=== PATIENT | male | born 1970 | race Caucasian/White ===

== ENCOUNTER 2018-03-18 19:26 | Inpatient (IN) | payer OTHER ==
[~2018-03-18] VITALS: Ht 185.4 cm; Wt 58.5 kg
[~2018-03-18 19:26] MED LIST: GABAPENTIN 100100 MG PO; HUMULIN N100 UNIT/1 SQ; HUMULINR100 SUBQ
[2018-03-18 20:01] VITALS: BP 108/82
[2018-03-18 20:53] LABS: ABSOLUTE BASOPHILS 0.1 thou/uL (0.0-0.2); ABSOLUTE EOSINOPHILS 0.1 thou/uL (0.0-0.7); ABSOLUTE LYMPHOCYTES 2.6 thou/uL (0.8-5.3); ABSOLUTE MONOCYTES 0.7 thou/uL (0.0-1.2); ABSOLUTE NEUTROPHILS 7.3 thou/uL (1.6-8.1); BASOPHILS 1.3 %; EOSINOPHILS 0.8 %; HEMATOCRIT 46.4 % (42.0-52.0); HEMOGLOBIN 15.9 gm/dL (14.0-18.0); MCH 32.3 pg (26.0-34.0); MCHC 34.2 g/dL (28.0-37.0); MCV 94.5 fL (80.0-100.0); MONOCYTES 6.8 %; MPV 9.3 fl. (7.2-11.1); NUCLEATED RBCS 0 /100WBC; PLATELET COUNT* 229 thou/uL (150-400); POLYS 67.1 %; RBC 4.91 mil/uL (4.50-6.00); RDW-CV 13.5 % (10.5-14.5); WBC 10.8 thou/uL (4.0-11.0)
[2018-03-18 20:58] LABS: PROTIME 9.3 Seconds (9.20-11.50)
[2018-03-18 21:29] LABS: URINE BILIRUBIN NEGATIVE (Negative); URINE BLOOD NEGATIVE (Negative); URINE CLARITY CLEAR; URINE COLOR STRAW; URINE GLUCOSE-RANDOM 3+ (Negative); URINE KETONES NEGATIVE (Negative); URINE LEUKOCYTES-REFLEX NEGATIVE (Negative); URINE NITRITE-REFLEX NEGATIVE (Negative); URINE PROTEIN NEGATIVE (Negative); URINE SPECIFIC GRAVITY <= 1.005 (1.005-1.030); URINE UROBILINOGEN 0.2 E.U./dl (0.2-1.0)
[2018-03-18 21:53] LABS: ANION GAP 6 mmol/L (7-16); BUN 11 mg/dL (7-18); CALCIUM 8.5 mg/dL (8.5-10.1); CHLORIDE 92 mmol/L (98-107); CO2 26 mmol/L (21-32); POTASSIUM 4.4 mmol/L (3.5-5.1); SODIUM 124 mmol/L (136-145)
[2018-03-18 21:57] LABS: TROPONIN-I LEVEL <0.06 ng/mL (<0.06)
[2018-03-18 22:01] LABS: TOTAL PROTEIN 7.1 g/dL (6.4-8.2)
[2018-03-18 22:02] LABS: ALBUMIN 3.4 g/dL (3.4-5.0)
[2018-03-18 22:04] LABS: ALKALINE PHOSPHATASE 154 U/L (46-116); LIPASE 367 U/L (73-393); TOTAL BILIRUBIN 0.4 mg/dL (<0.1-1.0)
[2018-03-18 22:05] LABS: SGOT 148 U/L (15-37); SGPT 103 U/L (30-65)
[2018-03-18 22:07] LABS: GLUCOSE 642 mg/dL (70-99)
[2018-03-18 22:08] LABS: NT-PRO BRAIN NAT PEPTIDE 27 pg/mL (<300)
[2018-03-18 23:40] VITALS: BP 123/84
[2018-03-18 23:45] VITALS: BP 135/97
[2018-03-19 00:35] VITALS: BP 123/84
[2018-03-19 04:50] VITALS: BP 117/67
[2018-03-19 04:58] LABS: HEMATOCRIT 42.1 % (42.0-52.0); HEMOGLOBIN 14.4 gm/dL (14.0-18.0); MCH 31.2 pg (26.0-34.0); MCHC 34.3 g/dL (28.0-37.0); MCV 90.9 fL (80.0-100.0); MPV 9.2 fl. (7.2-11.1); RBC 4.63 mil/uL (4.50-6.00); RDW-CV 13.4 % (10.5-14.5); WBC 11.8 thou/uL (4.0-11.0)
[2018-03-19 06:01] LABS: ALBUMIN 2.8 g/dL (3.4-5.0); CALCIUM 8.1 mg/dL (8.5-10.1); CREATININE 0.6 mg/dL (0.6-1.3); POTASSIUM 3.7 mmol/L (3.5-5.1); TOTAL BILIRUBIN 0.2 mg/dL (<0.1-1.0); TOTAL PROTEIN 5.6 g/dL (6.4-8.2)
[2018-03-19] MEDS ORDERED: NEURONTIN 300300 M1 PO (07:44)
[2018-03-19 08:00] VITALS: BP 121/78
[2018-03-19] MEDS ORDERED: HUMULIN N100 UNIT/1 SUBQ (11:03)
[2018-03-19] MEDS ORDERED: HUMULIN R100 UNIT/M SUBQ (11:15)
[2018-03-19 11:27] VITALS: BP 121/78
--- NOTE | 2018-03-20 12:54 | EKG ---
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
== END 2018-03-19 13:30 | disposition home or self-care (01) | DRG 638 ==
LOC: M.ERS 19:26 → M.2W 22:47 → M.TBA-ER 22:47 → M.2W 23:34
PROVIDERS: Emergency Medicine; ADMIT Internal Medicine
DX: E11.65 Type 2 diabetes mellitus with hyperglycemia (principal); E87.1 Hypo-osmolality and hyponatremia; E11.40 Type 2 diabetes mellitus with diabetic neuropathy, unspecified; E86.0 Dehydration; F17.210 Nicotine dependence, cigarettes, uncomplicated; Z88.0 Allergy status to penicillin; Z91.14 Patient's other noncompliance with medication regimen

== ENCOUNTER 2019-12-22 16:45 | Inpatient (IN) | payer OTHER ==
[~2019-12-22] VITALS: Ht 185.4 cm; Wt 61.8 kg
--- NOTE | ~2019-12-22 | CON ---
[address] [address] CONSULTATION Name: CHRISTEN LIRA Room: [address] IN M.R.#: [id number] Admission: 12/22/19 Attend Phys: Nevin Berger Discharge: Date of : 72 Report #: [id number] THIS REPORT FOR: //name// cc: ABHAY Agrawal family physician/PCP ABHAY Agrawal family physician/PCP ~ THIS REPORT FOR: //name// CC: ABHAY physician/PCP Nevin Canales DATE OF SERVICE: 12/23/2019 ADMISSION DIAGNOSIS: Diabetic foot ulcer. HISTORY OF PRESENT ILLNESS: A 48-year-old male admitted for worsening pain to his left posterior heel ulceration. The patient has uncontrolled type 2 diabetes mellitus, and he has no primary care physician nor has he received outside treatment for this wound. He states the wound has been present for roughly 1 week, which he attributes to rubbing on his shoe heel counter. He states his mother was debriding the wound and dressing it daily. He states this is the first time occurrence with no history of prior foot ulcers. He denies fevers, chills, nausea or malaise. He does not routinely take his blood glucose, and he states that his NPH and Regular Human were recently discontinued and he is just taking metformin. A swab culture of the wound was taken upon admission, he is currently on parenteral vancomycin and cefepime. Post-admission foot radiographs were negative for osteomyelitis. Arterial Doppler examination from March 2018 was normal with strong triphasic waveforms and no signs of vasculopathy. LABORATORY DATA: WBC 13.1, RBC 4.62, hemoglobin 14.0, hematocrit 40.4, platelets 218. BUN 16, creatinine 0.6, glucose 187, albumin 2.7. PHYSICAL EXAMINATION: There is a full-thickness ulceration to the left posterior calcaneus that measures 2.3 x 2.5 x 0.3 cm. There is exposed Achilles tendon with some pale fibrous slough to the surrounding wound bed. There is low-grade inflammation to the surrounding soft tissue consistent with low-grade cellulitis. There is no fluctuance or crepitation. The Achilles tendon is intact with full strength. He has palpable dorsalis pedis and posterior tibial pulses with immediate digital capillary refill. Negative calf pain, negative Cee/Almonte sign. No popliteal adenopathy. IMPRESSION: Diabetic and mal perforans ulceration to left posterior calcaneus, Smith stage 2. PLAN: An excisional ulcer debridement was performed with a sterile curette to excise subcutaneous tissue, slough [place] [address] CONSULTATION Name: CHRISTEN LIRA Room: [address] IN M.R.#: [id number] Admission: 12/22/19 Attend Phys: Nevin Berger Discharge: Date of : 72 Report #: [id number] bleeding was stopped with pressure. The wound was cleansed and dressed with Aquacel Ag, 4 x 4s, ABD and Kerlix bandage. I do not foresee the need for surgical debridement in this case. I am awaiting wound cultures. The patient may ambulate for short distances and transfers only. By: [id number] Barksdale DPM /nt
--- NOTE | ~2019-12-22 | CON ---
[address] [address] CONSULTATION Name: CHRISTEN LIRA Room: [address] ADM IN M.R.#: [id number] Admission: 12/22/19 Attend Phys: Nevin Berger Discharge: Date of : 72 Report #: [id number] THIS REPORT FOR: //name// cc: ABHAY Agrawal family physician/PCP ABHAY - Tanja family physician/PCP ~ THIS REPORT FOR: //name// CC: ABHAY physician/PCP Nevin Canales DATE OF SERVICE: 12/25/2019 CHIEF COMPLAINT: Followup of ulceration to the left posterior calcaneus with exposed Achilles tendon. The patient relates decreased pain to the area. Wound culture grew group B streptococcus. He is currently on parenteral vancomycin and cefepime. He has been afebrile, denies malaise or appetite disturbance. LABORATORY DATA: WBC 10.0, RBC 4.39, hemoglobin 13.4, hematocrit 38.8, platelets 210. BUN is 9, creatinine 0.5, glucose 148. Albumin 2.7. PHYSICAL EXAMINATION: There is decreased inflammation to the periwound with no signs of acute vascular embarrassment. The wound bed has exposed Achilles tendon, which is intact and fully functional. There is sparse granulation to the medial and lateral aspects of the tendon. There is no undermining or fluctuance. Back/crepitation. No undermining or signs of deep infection. He has palpable dorsalis pedis and posterior tibial pulses to both feet. IMPRESSION: Diabetic ulceration, left posterior calcaneus with group B streptococcus. PLAN: The wound was cleansed, dried and redressed with Aquacel Ag, ABDs, Kerlix and Kye bandage. The patient may be minimally ambulatory as necessary for ADLs. From my perspective, I feel discharged on oral antibiotics such as clindamycin is appropriate, as HE IS ALLERGIC TO PENICILLIN. He has a followup appointment with [facility], already scheduled. Continue wound care 3 times a week with Aquacel Ag, ABD, Kerlix and Kye. By: [id number] Barksdale DPM /jesús
[~2019-12-22 16:45] MED LIST changes: +HUMULIN R100 UNIT/M SUBQ; +NEURONTIN 300300 M1 PO
[2019-12-22 16:56] VITALS: BP 132/93
[2019-12-22] MEDS ORDERED: METFORMIN HCL500 M3 PO (16:58)
[2019-12-22 17:23] LABS: ABSOLUTE BASOPHILS 0.1 thou/uL (0.0-0.2); ABSOLUTE EOSINOPHILS 0.1 thou/uL (0.0-0.7); ABSOLUTE LYMPHOCYTES 2.8 thou/uL (0.8-5.3); ABSOLUTE NEUTROPHILS 9.2 thou/uL (1.6-8.1); EOSINOPHILS 1.1 %; HEMATOCRIT 43.9 % (42.0-52.0); HEMOGLOBIN 15.2 gm/dL (14.0-18.0); MCH 30.8 pg (26.0-34.0); MCHC 34.6 g/dL (28.0-37.0); MCV 89.1 fL (80.0-100.0); MONOCYTES 7.2 %; MPV 8.7 fl. (7.2-11.1); NUCLEATED RBCS 0 /100WBC; PLATELET COUNT* 224 thou/uL (150-400); POLYS 69.7 %; RBC 4.93 mil/uL (4.50-6.00); RDW-CV 13.2 % (10.5-14.5); WBC 13.1 thou/uL (4.0-11.0)
[2019-12-22 17:30] LABS: APTT 25.9 Seconds (25.0-31.3); INR 0.9; PROTIME 9.4 Seconds (9.20-11.50)
[2019-12-22 17:51] LABS: CALCIUM 9.1 mg/dL (8.5-10.1); CREATININE 0.9 mg/dL (0.6-1.3); POTASSIUM 4.6 mmol/L (3.5-5.1); TOTAL BILIRUBIN 0.2 mg/dL (<0.1-1.0); TOTAL PROTEIN 7.6 g/dL (6.4-8.2)
[2019-12-22 18:44] VITALS: BP 141/79
[2019-12-22 18:45] VITALS: BP 131/91
[2019-12-22 20:00] VITALS: BP 127/81
[2019-12-23 00:08] VITALS: BP 115/73
[2019-12-23 05:37] LABS: HEMATOCRIT 40.4 % (42.0-52.0); MCH 30.3 pg (26.0-34.0); MCHC 34.6 g/dL (28.0-37.0); MCV 87.5 fL (80.0-100.0); MPV 9.1 fl. (7.2-11.1); RBC 4.62 mil/uL (4.50-6.00); RDW-CV 13.5 % (10.5-14.5); WBC 13.1 thou/uL (4.0-11.0)
[2019-12-23 05:41] LABS: INR 0.9; PROTIME 9.4 Seconds (9.20-11.50)
[2019-12-23 05:46] LABS: ALBUMIN 2.7 g/dL (3.4-5.0); CALCIUM 7.9 mg/dL (8.5-10.1); CREATININE 0.6 mg/dL (0.6-1.3); MAGNESIUM 1.6 mg/dL (1.8-2.4); PHOSPHORUS* 3.4 mg/dL (2.5-4.9); POTASSIUM 3.8 mmol/L (3.5-5.1)
[2019-12-23 06:39] LABS: URINE BILIRUBIN NEGATIVE (Negative); URINE BLOOD NEGATIVE (Negative); URINE CLARITY CLEAR; URINE COLOR YELLOW; URINE GLUCOSE-RANDOM 3+ (Negative); URINE KETONES NEGATIVE (Negative); URINE LEUKOCYTES-REFLEX NEGATIVE (Negative); URINE NITRITE-REFLEX NEGATIVE (Negative); URINE PROTEIN NEGATIVE (Negative); URINE SPECIFIC GRAVITY 1.015 (1.005-1.030); URINE UROBILINOGEN 0.2 E.U./dl (0.2-1.0)
[2019-12-23 06:48] LABS: AMP/METHAMP Negative (Negative); BARBITURATES Negative (Negative); BENZODIAZEPINES Negative (Negative); COCAINE Negative (Negative); METHADONE Negative (Negative); OPIATES Negative (Negative); PCP Negative (Negative); THC POSITIVE (Negative)
[2019-12-23 08:15] VITALS: BP 134/83
[2019-12-23 15:58] VITALS: BP 134/89
[2019-12-23 20:00] VITALS: BP 132/89
[2019-12-24 00:22] VITALS: BP 123/88
[2019-12-24 04:09] VITALS: BP 114/86
[2019-12-24 05:37] LABS: HEMATOCRIT 38.8 % (42.0-52.0); HEMOGLOBIN 13.4 gm/dL (14.0-18.0); MCH 30.4 pg (26.0-34.0); MCHC 34.5 g/dL (28.0-37.0); MCV 88.3 fL (80.0-100.0); MPV 8.6 fl. (7.2-11.1); RBC 4.39 mil/uL (4.50-6.00); RDW-CV 13.4 % (10.5-14.5)
[2019-12-24 05:47] LABS: ALBUMIN 2.5 g/dL (3.4-5.0); CREATININE 0.5 mg/dL (0.6-1.3); MAGNESIUM 1.7 mg/dL (1.8-2.4); PHOSPHORUS* 2.7 mg/dL (2.5-4.9)
[2019-12-24 08:00] VITALS: BP 135/87
[2019-12-24 15:39] LABS: CHOLESTEROL 119 mg/dL (<200); HDL CHOLESTEROL 40 mg/dL (>40); LDL CHOLESTEROL 62 mg/dL (<100); TRIGLYCERIDE 85 mg/dL (<150); VLDL 17 mg/dL (<40)
[2019-12-24 15:40] LABS: SERUM ASSESSMENT Clear
[2019-12-24 16:49] VITALS: BP 125/85
[2019-12-24 20:21] VITALS: BP 135/86
[2019-12-25 00:44] VITALS: BP 135/88
[2019-12-25 05:02] LABS: ALBUMIN 2.7 g/dL (3.4-5.0); CALCIUM 8.1 mg/dL (8.5-10.1); CREATININE 0.5 mg/dL (0.6-1.3); MAGNESIUM 1.8 mg/dL (1.8-2.4); PHOSPHORUS* 2.4 mg/dL (2.5-4.9); POTASSIUM 3.9 mmol/L (3.5-5.1)
[2019-12-25 08:00] VITALS: BP 134/88
[2019-12-25 13:45] VITALS: BP 134/88
[2019-12-25 20:08] VITALS: BP 133/89
[2019-12-26 00:25] VITALS: BP 136/92
[2019-12-26 05:01] LABS: HEMATOCRIT 37.1 % (42.0-52.0); HEMOGLOBIN 12.7 gm/dL (14.0-18.0); MCH 30.1 pg (26.0-34.0); MCHC 34.3 g/dL (28.0-37.0); MCV 87.7 fL (80.0-100.0); MPV 8.6 fl. (7.2-11.1); RBC 4.23 mil/uL (4.50-6.00); RDW-CV 13.3 % (10.5-14.5); WBC 11.1 thou/uL (4.0-11.0)
[2019-12-26 05:21] LABS: ALBUMIN 2.6 g/dL (3.4-5.0); CALCIUM 8.1 mg/dL (8.5-10.1); CREATININE 0.5 mg/dL (0.6-1.3); MAGNESIUM 1.8 mg/dL (1.8-2.4); PHOSPHORUS* 2.3 mg/dL (2.5-4.9); POTASSIUM 3.6 mmol/L (3.5-5.1)
[2019-12-26 08:07] VITALS: BP 145/84
[2019-12-26] MEDS ORDERED: METFORMIN HCL500 M3 PO (11:01)
[2019-12-26] MEDS ORDERED: ULTRAM 50MG TAB50 MG PO (11:01)
[2019-12-26] MEDS ORDERED: GLYBURIDE 3 MG M3 MG PO (11:07)
[2019-12-26] MEDS ORDERED: GLUCOTROL5 MG PO (11:07)
[2019-12-26] MEDS ORDERED: CLEOCIN HCL150 MG PO (11:10)
[2019-12-26 12:37] VITALS: BP 131/95
[2019-12-26] MEDS ORDERED: HUMULIN N100 UNIT/1 SUBQ (12:59)
[2019-12-26 13:07] VITALS: BP 134/88
[2019-12-26 13:27] VITALS: BP 134/88
[2019-12-26 14:12] VITALS: BP 134/88
== END 2019-12-26 14:45 | disposition home or self-care (01) | DRG 854 ==
LOC: M.ERS 16:45 → M.TBA-ER 17:23 → M.2W 17:23
PROVIDERS: Family Medicine; ADMIT Family Medicine
PROC: 0JBR0ZZ Excision of Left Foot Subcutaneous Tissue and Fascia, Open Approach (ICD-10-PCS; principal; 2019-12-26)
DX: A41.9 Sepsis, unspecified organism (principal); E87.1 Hypo-osmolality and hyponatremia; E44.0 Moderate protein-calorie malnutrition; Z68.1 Body mass index [BMI] 19.9 or less, adult; E11.21 Type 2 diabetes mellitus with diabetic nephropathy; E11.65 Type 2 diabetes mellitus with hyperglycemia; E11.621 Type 2 diabetes mellitus with foot ulcer; L97.529 Non-pressure chronic ulcer of other part of left foot with unspecified severity; Z83.3 Family history of diabetes mellitus; Z88.0 Allergy status to penicillin; Z82.49 Family history of ischemic heart disease and other diseases of the circulatory system

== ENCOUNTER 2021-01-31 17:52 | Emergency (ER) | payer OTHER ==
[~2021-01-31] VITALS: Ht 185.4 cm; Wt 59.0 kg
[~2021-01-31 17:52] MED LIST changes: +CLEOCIN HCL150 MG PO; +GLUCOTROL5 MG PO; +GLYBURIDE 3 MG M3 MG PO; +HUMULIN N100 UNIT/1 SUBQ; +METFORMIN HCL500 M3 PO; +ULTRAM 50MG TAB50 MG PO
[2021-01-31 18:38] LABS: ABSOLUTE EOSINOPHILS 0.2 thou/uL (0.0-0.7); ABSOLUTE LYMPHOCYTES 2.8 thou/uL (0.8-5.3); ABSOLUTE NEUTROPHILS 6.5 thou/uL (1.6-8.1); BASOPHILS 0.2 %; EOSINOPHILS 2.2 %; HEMATOCRIT 42.2 % (42.0-52.0); HEMOGLOBIN 14.5 gm/dL (14.0-18.0); LYMPHOCYTES 26.5 %; MCH 30.3 pg (26.0-34.0); MCHC 34.4 g/dL (28.0-37.0); MCV 88.2 fL (80.0-100.0); MONOCYTES 9.4 %; MPV 8.5 fl. (7.2-11.1); NUCLEATED RBCS 0 /100WBC; PLATELET COUNT* 216 thou/uL (150-400); POLYS 61.7 %; RBC 4.79 mil/uL (4.50-6.00); RDW-CV 13.3 % (10.5-14.5); WBC 10.5 thou/uL (4.0-11.0)
[2021-01-31 18:48] LABS: CALCIUM 8.5 mg/dL (8.5-10.1); POTASSIUM 4.5 mmol/L (3.5-5.1)
[2021-01-31 18:52] LABS: ALBUMIN 3.2 g/dL (3.4-5.0); MAGNESIUM 1.8 mg/dL (1.8-2.4); TOTAL BILIRUBIN 0.2 mg/dL (<0.1-1.0); TOTAL PROTEIN 6.9 g/dL (6.4-8.2)
[2021-01-31] MEDS ORDERED: NEURONTIN 300M300 M2 PO (19:23)
[2021-01-31] MEDS ORDERED: FLEXERIL PO (19:23)
[2021-01-31 19:40] VITALS: BP 110/72
== END 2021-01-31 19:40 | disposition home or self-care (01) ==
LOC: M.ERS 17:52
PROVIDERS: Nurse Practitioner Family
DX: E11.42 Type 2 diabetes mellitus with diabetic polyneuropathy (principal); M62.831 Muscle spasm of calf; F17.210 Nicotine dependence, cigarettes, uncomplicated; Z88.0 Allergy status to penicillin